=== PATIENT | male | born 1940 | race Hispanic/Latino ===

== ENCOUNTER 2020-01-09 18:27 | Inpatient (IN) | payer OTHER ==
[~2020-01-09] VITALS: Ht 170.2 cm; Wt 74.8 kg
[2020-01-09] MEDS ORDERED: ASPIRIN 325 MG TABLET ONE (18:43)
[2020-01-09] MEDS ORDERED: NITROGLYCERIN 1GM/1 INCH PACKET TD ONE (18:55)
[2020-01-09 19:15] LABS: BASOPHILS % (AUTO) 0.4 % (0.0-5.0); EOSINOPHILS % (AUTO) 0.9 % (0.0-8.0); HEMATOCRIT 43.3 % (42-54); LYMPHOCYTES % (AUTO) 14.8 % (21.0-51.0); MEAN CORPUSCULAR HGB CONC 34.6 g/dL (32.0-36.0); MEAN CORPUSCULAR VOLUME 92.3 fL (79-99); MONOCYTES % (AUTO) 6.4 % (3.0-13.0); NEUTROPHILS % (AUTO) 77.2 % (40.0-77.0); PLATELET COUNT (AUTO) 193 K/uL (130-400); RED BLOOD CELL COUNT(AUTO) 4.69 MIL/uL (4.50-6.20); RED CELL DISTRIBUTION WIDTH 12.4 % (11.0-15.5); WHITE BLOOD COUNT (AUTO) 11.6 K/uL (4.8-10.8)
[2020-01-09 19:24] LABS: INR 0.92 (0.85-1.15); PARTIAL THROMBOPLASTIN TIME 26.2 SEC (26.3-35.5)
[2020-01-09 19:39] LABS: B-TYPE NATRIURETIC PEPTIDE 43 pg/mL (0-100)
[2020-01-09 19:57] LABS: CREATININE 1.2 mg/dL (0.5-1.5)
[2020-01-09 20:02] LABS: ALBUMIN 4.3 g/dL (3.5-5.0); BILIRUBIN,TOTAL 0.5 mg/dL (0.2-1.0); TOTAL PROTEIN, SERUM 7.8 g/dL (6.0-8.3)
[2020-01-09] MEDS ORDERED: CLOPIDOGREL BISULFATE 300 MG TAB PO SCH (21:15)
[2020-01-09] MEDS ORDERED: METOPROLOL TARTRATE 50 MG TAB PO SCH (21:15)
[2020-01-09] MEDS ORDERED: NITROGLYCERIN 1GM/1 INCH PACKET TD SCH (21:15)
[2020-01-09] MEDS ORDERED: ONDANSETRON HCL 4 MG/2 ML VIAL IV PRN (21:15)
[2020-01-09] MEDS ORDERED: MORPHINE SULFATE 2 MG/ML 1ML SYG IVP PRN (21:15)
[2020-01-09] MEDS ORDERED: ENOXAPARIN SODIUM 80 MG/0.8 ML SQ SCH (21:15)
[2020-01-10] VITALS (13 sets, daily range): BP systolic 104–138; BP diastolic 57–77
[2020-01-10] MEDS: NITROGLYCERIN 1GM/1 INCH PACKET TD SCH ×3 (01:00→11:47)
[2020-01-10 04:00] LABS: BASOPHILS % (AUTO) 0.4 % (0.0-5.0); HEMATOCRIT 39.1 % (42-54); LYMPHOCYTES % (AUTO) 24.3 % (21.0-51.0); MEAN CORPUSCULAR HEMOGLOBIN 31.7 pg (27.0-33.0); MEAN CORPUSCULAR HGB CONC 34.5 g/dL (32.0-36.0); MEAN CORPUSCULAR VOLUME 91.8 fL (79-99); MONOCYTES % (AUTO) 9.1 % (3.0-13.0); NEUTROPHILS % (AUTO) 62.9 % (40.0-77.0); PLATELET COUNT (AUTO) 167 K/uL (130-400); RED BLOOD CELL COUNT(AUTO) 4.26 MIL/uL (4.50-6.20); RED CELL DISTRIBUTION WIDTH 12.6 % (11.0-15.5); WHITE BLOOD COUNT (AUTO) 11.2 K/uL (4.8-10.8)
[2020-01-10 04:18] LABS: HEMOGLOBIN A1C 6.2 % (4.0-6.0)
[2020-01-10 04:26] LABS: ALBUMIN 3.6 g/dL (3.5-5.0); BILIRUBIN,TOTAL 0.5 mg/dL (0.2-1.0); POTASSIUM 3.8 mmol/L (3.5-5.1); THYROID STIMULATING HORMONE 1.29 uIU/mL (0.36-3.74); TOTAL PROTEIN, SERUM 6.8 g/dL (6.0-8.3)
[2020-01-10] MEDS ORDERED: BIVALIRUDIN 250 MG/VIAL IV ONE (07:38)
[2020-01-10] MEDS ORDERED: IOHEXOL 350 MG/ML 100ML INFUS..BTL IV ONE (07:38)
[2020-01-10] MEDS ORDERED: IOHEXOL-350 50ML VIAL IV ONE (07:38)
[2020-01-10] MEDS ORDERED: NITROGLYCERIN 2 MG/VIAL VIAL IV ONE (07:38)
[2020-01-10] MEDS ORDERED: IODIXANOL 320 MG/ML 100 ML VIAL ONE (07:39)
[2020-01-10] MEDS ORDERED: LIDOCAINE HCL 2% 20ML ONE (07:39)
[2020-01-10] MEDS ORDERED: CLOPIDOGREL BISULFATE 75 MG TAB ONE (07:39)
[2020-01-10] MEDS ORDERED: ASPIRIN 81MG TAB.CHEW ONE (07:39)
[2020-01-10] MEDS ORDERED: FAMOTIDINE/PF 20 MG/2 ML VIAL IV ONE (07:40)
[2020-01-10] MEDS ORDERED: CLOPIDOGREL BISULFATE 75 MG TAB PO SCH (09:00)
[2020-01-10] MEDS ORDERED: METOPROLOL SUCCINATE 50 MG TAB.SR.24H PO SCH (09:00)
[2020-01-10] MEDS ORDERED: METOPROLOL TARTRATE 25 MG TAB PO SCH ×2 (09:00→10:10)
[2020-01-10] MEDS ORDERED: FAMOTIDINE/PF 20 MG/2 ML VIAL IV SCH (09:00)
[2020-01-10] MEDS ORDERED: ASPIRIN 81MG TAB.CHEW PO SCH ×2 (09:00)
[2020-01-10] MEDS ORDERED: LISINOPRIL 5 MG TABLET PO SCH (09:00)
[2020-01-10] MEDS ORDERED: ATORVASTATIN CALCIUM 20 MG TABLET PO SCH (09:00)
[2020-01-10] MEDS ORDERED: SODIUM CHLORIDE 0.9% 1000ML 1,000 ML IV SCH (09:04)
[2020-01-10] MEDS ORDERED: NITROGLYCERIN 0.4 MG SL TAB SL PRN (09:15)
--- NOTE | 2020-01-10 17:40 | NUR ---
PATIENT DISCHARGED HOME; PIV X2 REMOVED; PRESCRIPTION GIVEN, COPY IN CHART; D/C INSTRUCTIONS GIVEN TO PATIENT AND PATIENT'S DAUGHTER VIA TELEPHONE BY JHONNY MILLER; ALL QUESTIONS ANSWERED
[2020-01-10] MEDS ORDERED: TICAGRELOR 90 MG TABLET PO SCH (21:00)
[2020-01-10] MEDS ORDERED: SIMVASTATIN 20 MG TABLET PO SCH (21:00)
[2020-01-11] MEDS ORDERED: ASPIRIN 81MG TAB.CHEW PO SCH (09:00)
[2020-01-11] MEDS ORDERED: LISINOPRIL 10 MG TABLET PO SCH (09:00)
== END 2020-01-10 17:35 | disposition home or self-care (01) | DRG 280 ==
LOC: EDH 18:27 → EDHIP 21:12 → DAHIP 01-10 09:23
PROVIDERS: ADMIT Internal Medicine; ATTEND Internal Medicine
PROC: 4A023N7 Measurement of Cardiac Sampling and Pressure, Left Heart, Percutaneous Approach (ICD-10-PCS; principal; 2020-01-10)
PROC: B2111ZZ Fluoroscopy of Multiple Coronary Arteries using Low Osmolar Contrast (ICD-10-PCS; 2020-01-10)
PROC: B2151ZZ Fluoroscopy of Left Heart using Low Osmolar Contrast (ICD-10-PCS; 2020-01-10)
DX: I21.4 Non-ST elevation (NSTEMI) myocardial infarction (principal); I50.31 Acute diastolic (congestive) heart failure; I11.0 Hypertensive heart disease with heart failure; E78.5 Hyperlipidemia, unspecified; G47.33 Obstructive sleep apnea (adult) (pediatric); I25.10 Atherosclerotic heart disease of native coronary artery without angina pectoris; I25.5 Ischemic cardiomyopathy; I25.2 Old myocardial infarction; Z79.82 Long term (current) use of aspirin; Z79.899 Other long term (current) drug therapy; Z87.891 Personal history of nicotine dependence; Z95.5 Presence of coronary angioplasty implant and graft
CPT/HCPCS: 36415; 71045; 80053; 80061; 82550; 83036; 83880; 84443; 84484; 85025; 85610; 85730; 93005; 93458; C1760; C1894; G0378; J0583; J1644; J1650; J3490; Q9967

== ENCOUNTER → 2021-07-23 | Outpatient (CLI) | payer OTHER | END | disposition home or self-care (01) | LOC: RAH 11:16 | PROVIDERS: ATTEND Nurse Practitioner | DX: S83.241A Other tear of medial meniscus, current injury, right knee, initial encounter (principal); M17.11 Unilateral primary osteoarthritis, right knee; M25.40 Effusion, unspecified joint; X58.XXXA Exposure to other specified factors, initial encounter; Y93.89 Activity, other specified; Y92.89 Other specified places as the place of occurrence of the external cause; Y99.8 Other external cause status | CPT/HCPCS: 73721 ==

== ENCOUNTER 2021-10-23 06:15 | Day surgery (SDC) | payer OTHER ==
[2021-10-22 10:29] LABS: BASOPHILS % (AUTO) 0.9 % (0.0-5.0); EOSINOPHILS % (AUTO) 5.6 % (0.0-8.0); HEMATOCRIT 43.6 % (42-54); LYMPHOCYTES % (AUTO) 31.4 % (21.0-51.0); MEAN CORPUSCULAR HGB CONC 32.8 g/dL (32.0-36.0); MEAN CORPUSCULAR VOLUME 94.6 fL (79-99); NEUTROPHILS % (AUTO) 52.8 % (40.0-77.0); PLATELET COUNT (AUTO) 176 K/uL (130-400); RED BLOOD CELL COUNT(AUTO) 4.61 MIL/uL (4.50-6.20); RED CELL DISTRIBUTION WIDTH 12.5 % (11.0-15.5); WHITE BLOOD COUNT (AUTO) 7.7 K/uL (4.8-10.8)
[2021-10-22 10:37] LABS: CREATININE 1.1 mg/dL (0.5-1.5); POTASSIUM 4.7 mmol/L (3.5-5.1)
[2021-10-22 13:50] VITALS: BP 126/70
[2021-10-23] VITALS (14 sets, daily range): BP systolic 114–138; BP diastolic 55–75
[~2021-10-23] VITALS: Ht 172.7 cm; Wt 78.8 kg
[~2021-10-23 06:15] MED LIST: AEC81 PO; LISI2.5T13 PO; LORA10TA7 PO; METO-408 PO; MVIT PO; ROSU10TA22 PO
[2021-10-23] MEDS ORDERED: LACTATED RINGERS 1000ML 1,000 ML IV ONE (06:46)
[2021-10-23] MEDS: CEFAZOLIN SODIUM 1 GM VIAL IVP SCH ×2 (07:15→08:40)
[2021-10-23] MEDS ORDERED: PROPOFOL 10 MG/ML 20ML VIAL IV ONE (08:22)
[2021-10-23] MEDS ORDERED: LIDOCAINE PF 100MG/5ML (2%) SYRINGE 5ML ONE (08:22)
[2021-10-23] MEDS ORDERED: KETAMINE 50MG/ML SYRINGE 50 MG/ML DISP.SYRIN IV ONE (08:25)
[2021-10-23] MEDS ORDERED: KETOROLAC 30MG VIAL (30MG/ML) ONE (09:26)
[2021-10-23] MEDS ORDERED: CEPH500B PO (09:39)
[2021-10-23] MEDS ORDERED: ACET1TAB25 PO (09:39)
== END 2021-10-23 11:10 | disposition home or self-care (01) ==
LOC: DAH 06:15
PROVIDERS: ATTEND Orthopaedic Surgery
DX: M23.321 Other meniscus derangements, posterior horn of medial meniscus, right knee (principal); M17.11 Unilateral primary osteoarthritis, right knee; M23.341 Other meniscus derangements, anterior horn of lateral meniscus, right knee; Z20.822 Contact with and (suspected) exposure to COVID-19; M94.261 Chondromalacia, right knee; M25.461 Effusion, right knee; I10 Essential (primary) hypertension; E78.5 Hyperlipidemia, unspecified; G47.33 Obstructive sleep apnea (adult) (pediatric); I25.2 Old myocardial infarction; Z95.5 Presence of coronary angioplasty implant and graft; Z79.82 Long term (current) use of aspirin; Z79.899 Other long term (current) drug therapy; Z98.890 Other specified postprocedural states
CPT/HCPCS: 29880; 36415; 80048; 85025; 87635; A4215; A4221; A4222; A4223; A4649 ×2; A4663; A4930 ×2; A5120; A6223; C9803; J0690; J1885; J2001; J2704; J3490; J7120

== ENCOUNTER → 2024-02-16 | Outpatient (CLI) | payer OTHER ==
[~2024-02-16] MED LIST changes: +ACET-2079 PO; +CEPH500B PO
== END | disposition home or self-care (01) ==
LOC: SHCH 14:24
PROVIDERS: ATTEND Internal Medicine Cardiovascular Disease
DX: I08.3 Combined rheumatic disorders of mitral, aortic and tricuspid valves (principal); I65.23 Occlusion and stenosis of bilateral carotid arteries; I25.10 Atherosclerotic heart disease of native coronary artery without angina pectoris; I10 Essential (primary) hypertension; E78.5 Hyperlipidemia, unspecified; I50.31 Acute diastolic (congestive) heart failure; I77.9 Disorder of arteries and arterioles, unspecified; Z79.899 Other long term (current) drug therapy
CPT/HCPCS: 93306; 93356; 93880